=== PATIENT | male | born 1950 | race Caucasian/White ===

== ENCOUNTER 2019-04-18 17:46 | Inpatient (IN) | payer OTHER ==
[~2019-04-18] VITALS: Ht 172.7 cm; Wt 64.0 kg
[2019-04-18 18:50] LABS: BASOPHIL % 0.1 % (0-2); PLATELET COUNT 170 x10^3mcL (130-400)
[2019-04-18 18:52] LABS: CALCIUM 8.5 mg/dL (8.5-10.1); CARBON DIOXIDE 25.3 mmol/L (21-32); CHLORIDE SERUM 98 mmol/L (98-107); CREATININE SERUM 0.8 mg/dL (0.7-1.3); GFR1 > 60 mL/min; GLUCOSE SERUM 113 mg/dL (74-106); POTASSIUM SERUM 4.2 mmol/L (3.5-5.1); RED CELL DISTRIBUTION WIDTH 16.7 % (11.5-14.5); SODIUM SERUM 131 mmol/L (136-145)
[2019-04-18 18:57] LABS: ALKALINE PHOSPHATASE 118 U/L (46-116); ALT/SGPT 48 U/L (16-63); AST/SGOT 79 U/L (15-37); BILIRUBIN TOTAL 2.29 mg/dL (0.20-1.00); LIPASE 154 IU/L (73-393); TOTAL PROTEIN, SERUM 7.1 g/dL (6.4-8.2)
[2019-04-18 19:22] LABS: ALBUMIN 2.5 g/dL (3.4-5.0)
[2019-04-18 22:17] LABS: MAGNESIUM 1.8 mg/dL (1.8-2.4)
[2019-04-18 22:22] LABS: CHOLESTEROL/HDL RATIO 7.6
[2019-04-19] MEDS ORDERED: LASIX40 MG PO (01:54)
[2019-04-19] MEDS ORDERED: TENORMIN50 MG PO (01:56)
[2019-04-19] MEDS ORDERED: SPIRONOLACTONE100 MG PO (01:56)
[2019-04-19] MEDS ORDERED: PREDNISONE1 MG PO (01:59)
[2019-04-19] MEDS ORDERED: KLO0.5 PO (02:00)
[2019-04-19 02:26] VITALS: BP 130/77
[2019-04-19 04:58] VITALS: BP 104/62
[2019-04-19 05:05] LABS: microscopic required? YES; urine erythrocyte TRACE (NEGATIVE)
[2019-04-19 07:11] LABS: BASOPHIL % 0.7 % (0-2); PLATELET COUNT 135 x10^3mcL (130-400)
[2019-04-19 07:39] LABS: CALCIUM 8.3 mg/dL (8.5-10.1); CARBON DIOXIDE 24.5 mmol/L (21-32); CHLORIDE SERUM 99 mmol/L (98-107); CREATININE SERUM 0.8 mg/dL (0.7-1.3); GFR1 > 60 mL/min; GLUCOSE SERUM 74 mg/dL (74-106); POTASSIUM SERUM 4.2 mmol/L (3.5-5.1); SODIUM SERUM 131 mmol/L (136-145)
[2019-04-19 08:10] VITALS: BP 106/65
[2019-04-19 12:41] VITALS: BP 106/66
[2019-04-19 12:56] LABS: RED CELL DISTRIBUTION WIDTH 16.5 % (11.5-14.5)
[2019-04-19 20:50] VITALS: BP 117/79
[2019-04-20] VITALS (11 sets, daily range): BP systolic 79–151; BP diastolic 51–82
[2019-04-20 04:08] LABS: AMPHETAMINE QUAL UR NONE DETECTED (See below)
[2019-04-20 06:20] LABS: BASOPHIL % 0.6 % (0-2); PLATELET COUNT 153 x10^3mcL (130-400)
[2019-04-20 06:51] LABS: CALCIUM 8.4 mg/dL (8.5-10.1); CARBON DIOXIDE 25.3 mmol/L (21-32); CHLORIDE SERUM 99 mmol/L (98-107); CREATININE SERUM 0.8 mg/dL (0.7-1.3); GFR1 > 60 mL/min; GLUCOSE SERUM 76 mg/dL (74-106); POTASSIUM SERUM 4.3 mmol/L (3.5-5.1); SODIUM SERUM 130 mmol/L (136-145)
[2019-04-20 17:12] LABS: APPEARANCE FLUID HAZY; COLOR FLUID YELLOW; RBC FLUID 385 /cumm; SOURCE FLUID ASCITES; WBC FLUID 53 /cumm
[2019-04-20 17:13] LABS: LYMPHOCYTE FLUID 11 %; MONOCYTE FLUID 69 %
[2019-04-21 05:43] VITALS: BP 107/60
[2019-04-21 06:34] LABS: BASOPHIL % 0.6 % (0-2); PLATELET COUNT 155 x10^3mcL (130-400)
[2019-04-21 07:22] LABS: CALCIUM 8.2 mg/dL (8.5-10.1); CARBON DIOXIDE 26.7 mmol/L (21-32); CHLORIDE SERUM 100 mmol/L (98-107); CREATININE SERUM 0.8 mg/dL (0.7-1.3); GFR1 > 60 mL/min; GLUCOSE SERUM 81 mg/dL (74-106); POTASSIUM SERUM 4.5 mmol/L (3.5-5.1); SODIUM SERUM 131 mmol/L (136-145)
[2019-04-21 08:11] LABS: RED CELL DISTRIBUTION WIDTH 16.4 % (11.5-14.5)
[2019-04-21 08:25] VITALS: BP 104/66
[2019-04-21 13:34] VITALS: BP 98/61
[2019-04-21 16:42] VITALS: BP 101/66
[2019-04-21 20:40] VITALS: BP 124/66
[2019-04-22 05:45] VITALS: BP 105/62
[2019-04-22 06:20] LABS: BASOPHIL % 1.1 % (0-2); PLATELET COUNT 145 x10^3mcL (130-400)
[2019-04-22 06:31] LABS: RED CELL DISTRIBUTION WIDTH 16.7 % (11.5-14.5)
[2019-04-22 06:36] LABS: CARBON DIOXIDE 25.9 mmol/L (21-32); CHLORIDE SERUM 100 mmol/L (98-107); CREATININE SERUM 0.6 mg/dL (0.7-1.3); GFR1 > 60 mL/min; GLUCOSE SERUM 84 mg/dL (74-106); POTASSIUM SERUM 4.2 mmol/L (3.5-5.1); SODIUM SERUM 131 mmol/L (136-145)
[2019-04-22 07:35] VITALS: BP 119/73
[2019-04-22 13:09] VITALS: BP 110/70
[2019-04-22 16:56] VITALS: BP 117/73
[2019-04-22 19:44] VITALS: BP 107/59
[2019-04-23 04:36] VITALS: BP 140/68
[2019-04-23 09:03] VITALS: BP 132/78
[2019-04-23 12:23] VITALS: BP 111/65
[2019-04-23 16:22] VITALS: BP 97/56
[2019-04-23 16:26] VITALS: BP 107/71
[2019-04-23 20:29] VITALS: BP 101/66
[2019-04-24 05:52] VITALS: Ht 172.7 cm; Wt 64.0 kg
[2019-04-24 06:08] VITALS: BP 105/60
[2019-04-24 06:10] LABS: BASOPHIL % 0.8 % (0-2); PLATELET COUNT 149 x10^3mcL (130-400)
[2019-04-24 06:13] LABS: CALCIUM 8.6 mg/dL (8.5-10.1); CARBON DIOXIDE 25.1 mmol/L (21-32); CHLORIDE SERUM 98 mmol/L (98-107); CREATININE SERUM 0.7 mg/dL (0.7-1.3); GFR1 > 60 mL/min; GLUCOSE SERUM 69 mg/dL (74-106); POTASSIUM SERUM 4.5 mmol/L (3.5-5.1); SODIUM SERUM 130 mmol/L (136-145)
[2019-04-24 06:23] LABS: RED CELL DISTRIBUTION WIDTH 17.3 % (11.5-14.5)
[2019-04-24 08:55] VITALS: BP 103/60
[2019-04-24 13:46] VITALS: BP 99/64
[2019-04-24 18:21] VITALS: BP 100/61
[2019-04-24 19:42] VITALS: BP 107/68
[2019-04-25 04:49] VITALS: BP 101/63
[2019-04-25 09:15] VITALS: BP 110/70
[2019-04-25 13:40] VITALS: BP 116/69
[2019-04-25 17:50] VITALS: BP 115/67
[2019-04-25 20:25] VITALS: BP 101/65
[2019-04-26 05:46] VITALS: BP 106/68
[2019-04-26 06:18] LABS: CALCIUM 8.5 mg/dL (8.5-10.1); CARBON DIOXIDE 27.4 mmol/L (21-32); CHLORIDE SERUM 99 mmol/L (98-107); CREATININE SERUM 0.8 mg/dL (0.7-1.3); GFR1 > 60 mL/min; GLUCOSE SERUM 105 mg/dL (74-106); POTASSIUM SERUM 4.3 mmol/L (3.5-5.1); SODIUM SERUM 131 mmol/L (136-145)
[2019-04-26 06:22] LABS: BASOPHIL % 0.6 % (0-2); PLATELET COUNT 159 x10^3mcL (130-400)
[2019-04-26 09:03] VITALS: BP 95/62
[2019-04-26 13:24] VITALS: BP 103/64
[2019-04-26 14:14] VITALS: BP 103/64
[2019-04-26] MEDS ORDERED: LACTULOSE10 GM/152 PO (14:46)
[2019-04-26] MEDS ORDERED: FUROSEMIDE20 MG PO (14:46)
== END 2019-04-26 15:24 | disposition home health service (06) | DRG 441 ==
LOC: ED 17:46 → DU 19:41 → MU 04-25 14:46
PROVIDERS: Emergency Medicine; Internal Medicine Gastroenterology; ADMIT Internal Medicine
PROC: 0W9G3ZZ Drainage of Peritoneal Cavity, Percutaneous Approach (ICD-10-PCS; principal; 2019-04-20)
DX: K72.90 Hepatic failure, unspecified without coma (principal); I21.4 Non-ST elevation (NSTEMI) myocardial infarction; C22.7 Other specified carcinomas of liver; R18.8 Other ascites; K76.6 Portal hypertension; K74.69 Other cirrhosis of liver; B18.2 Chronic viral hepatitis C; I25.10 Atherosclerotic heart disease of native coronary artery without angina pectoris; Z79.82 Long term (current) use of aspirin; Z68.21 Body mass index [BMI] 21.0-21.9, adult
CPT/HCPCS: 49083; 83880; 87116; 87206; 87804; 88344; 92610-GN; 97110-GP; 97116-GP; 97530-GP; G0378; J1644; J1940; J1956; J2001; J7050; P9047; Q0092; Q9967